=== PATIENT | female | born 1955 | race Caucasian/White ===

== ENCOUNTER 2022-02-10 10:20 | Emergency (ER) | payer BC, MEDICARE ==
[2022-02-10] MEDS ORDERED: Ondansetron ODT 4 MG TAB ONE (11:41)
== END 2022-02-10 11:50 | disposition home or self-care (01) ==
LOC: NAV ERS 10:20
DX: R10.13 Epigastric pain (principal); E11.9 Type 2 diabetes mellitus without complications; I10 Essential (primary) hypertension; K21.9 Gastro-esophageal reflux disease without esophagitis; Z79.84 Long term (current) use of oral hypoglycemic drugs; Z79.899 Other long term (current) drug therapy
CPT/HCPCS: 99283; Q0162